=== PATIENT | male | born 1985 | race Caucasian/White ===

== ENCOUNTER 2018-05-20 11:25 | Emergency (ER) | payer MEDICAID ==
[2018-05-20 11:35] VITALS: BP 116/79; PULSE 85; RESP 16; TEMP 98.1; O2SAT 98
[2018-05-20] MEDS ORDERED: Tobramycin/Dexamethasone OPHT OINT OU STA (11:44)
[2018-05-20] MEDS ORDERED: Tobramycin 0.3% OPH OINT ONE (11:47)
[2018-05-20] MEDS ORDERED: Fluorescein 1 mg Ophthalmic Strip OU ONE (11:47)
[2018-05-20] MEDS ORDERED: PROPARACAINE/FLUORESCEIN SOD 100 DROP/5 ML BOTTLE ONE (11:49)
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
== END 2018-05-20 12:06 | disposition home or self-care (01) ==
LOC: C.ER 11:25
DX: S05.02XA Injury of conjunctiva and corneal abrasion without foreign body, left eye, initial encounter (principal); S05.01XA Injury of conjunctiva and corneal abrasion without foreign body, right eye, initial encounter; Y04.0XXA Assault by unarmed brawl or fight, initial encounter